=== PATIENT | male | born 1960 | race Caucasian/White ===

== ENCOUNTER 2020-10-18 17:14 | Observation (INO) | payer OTHER, SELFPAY ==
[2020-10-18 12:44] LABS: Basophils # 0.1 K/mm3 (0-0.2); Eosinophils # 0.2 K/mm3 (0.0-0.4); Eosinophils % 1.7 % (0.1-12.0); Hematocrit 56.3 % (42.0-52.0); Lymphocytes # 2.4 K/mm3 (0.7-4.5); Lymphocytes % 22.5 % (10-50); Mean Corpuscular HGB Conc 33.8 g/dL (31.8-35.4); Mean Corpuscular Hemoglobin 30.4 pg (27.0-31.2); Mean Corpuscular Volume 90.1 fl (80-94); Mean Platelet Volume 7.9 fl (7.4-10.4); Monocytes # 0.7 K/mm3 (0.1-1.0); Monocytes % 6.1 % (1.7-9.3); Neutrophils # 7.5 K/mm3 (1.8-7.8); Neutrophils % 68.7 % (37.0-80.0); Platelet Count 277 K/mm3 (142-424); Red Blood Count 6.24 M/mm3 (4.60-6.20); Red Cell Distribution Width 13.8 % (11.5-17.5); White Blood Count 10.8 K/mm3 (4.8-10.8)
--- NOTE | 2020-10-18 12:52 | ECG_ITS ---
APPROVED REPORT Exam: Resting ECG HR:127 bpm ECG Measurements Heart Rate 127 AXES QRSd 110 QRS -61 QT 346 T 119 QTc 502 Conclusion Atrial fibrillation with rapid ventricular response with premature ventricular or aberrantly conducted complexes Left anterior fascicular block Voltage criteria for left ventricular hypertrophy ST & T wave abnormality, consider lateral ischemia or digitalis effect Abnormal ECG Electronically signed by : Niraj Vela, 10/19/2020 08:35:34
[2020-10-18 13:02] LABS: Chloride 98 mmol/L (98-107); Potassium 4.9 mmoL/L (3.5-5.1); Sodium 140 mmol/L (136-145)
[2020-10-18 13:04] LABS: Alanine Aminotransferase 53 U/L (12-78); Aspartate Amino Transferase 49 U/L (17-59); Blood Urea Nitrogen 18 mg/dl (9-20); Estimated Glomerular Filt Rate 48 ml/min (>60); GFR (African American) 58 ML/MIN (>60)
[2020-10-18 13:05] LABS: Albumin Level 4.7 g/dl (3.5-5.0); Albumin/Globulin Ratio 1.6 (1.1-1.8); Alkaline Phosphatase 75 U/L (38-126); Anion Gap 12.9 mEq/L (5-15); Bilirubin,Total 0.8 mg/dl (0.2-1.3); Calcium 10.3 mg/dl (8.4-10.2); Carbon Dioxide 34 mmol/L (22.0-30.0); Creatine Kinase 93 U/L (55-170); Glucose 164 mg/dl (74-100); Total Protein,Serum 7.7 g/dl (6.3-8.2)
[2020-10-18 13:14] LABS: CKMB Relative Index 6.3 U/L (0-4.0); Creatine Kinase MB 5.9 ng/ml (0.0-2.03)
[2020-10-18 13:19] LABS: Troponin I 0.31 ng/ml (0.00-0.034)
[2020-10-18 13:37] LABS: Thyroid Stimulating Hormone 7.12 uIU/mL (0.465-4.68)
[2020-10-18 17:27] VITALS: BP 149/91; PULSE 76; RESP 20; TEMP 36.4; O2SAT 96; BMI 37.3
[2020-10-18 18:00] VITALS: BP 157/94; PULSE 59; RESP 21; O2SAT 95
[2020-10-18 18:41] LABS: Coronavirus 19, PCR Not Detected (NotDetected); Influenza A, PCR Not Detected (NotDetected); Influenza B, PCR Not Detected (NotDetected)
--- NOTE | 2020-10-18 19:10 | HMH.ACPN2 ---
Internal Medicine - PN: Subj *Date: 10/18/20 *Time: 19:10 Interval history: 60 Y.O. WM seen in office [facility] today with c/o of high BP and not feeling well for weeks. On no current medications. No chest pain. C/o fatigue and has lost about 20 pounds over several months. Not aware of heart irregularity. In office was found to be in atrial fibrillation with RVR greater than 112. Lungs were clear. No distress. The patient did not want hospitalization. Does not have insurance. Labwork and EKG were obtained as outpatient. Patient was contacted by Dr. Hyde regarding abnormal labs. At that point he agreed to admission. Dr. Hyde has been in contact with Dr. Dougherty regarding the patient, and he is aware of EKG and lab values. CPK=93, MB=5.9, Troponin=j0.31, BUN=18, creatinine=1.5, TSH=7.12, Lkr=790. He does not have previous diagnosis of A.fib, diabetes, or thyroid disease. Exam Vital signs and Labs for Last 24 Hours: Temp Pulse Resp BP Pulse Ox 97.6 F 59 L 21 157/94 H 95 10/18/20 17:27 10/18/20 18:00 10/18/20 18:00 10/18/20 18:00 10/18/20 18:00 Laboratory Results - last 24 hr 10/18/20 12:34: Sodium 140, Potassium 4.9, Chloride 98, Carbon Dioxide 34 H, Anion Gap 12.9, BUN 18, Creatinine 1.50 H, Estimated GFR 48 L, Est GFR ( Amer) 58 L, Glucose 164 H, Calcium 10.3 H, Total Bilirubin 0.8, AST 49, ALT 53, Alkaline Phosphatase 75, Total Creatine Kinase 93, CK-MB (CK-2) 5.9 H, CK-MB (CK-2) Rel Index 6.3 H, Troponin I 0.31 H, Total Protein 7.7, Albumin 4.7, Globulin 3.0, Albumin/Globulin Ratio 1.6, TSH 7.12 H 10/18/20 12:34: WBC 10.8, RBC 6.24 H, Hgb 19.0 H*, Hct 56.3 H, MCV 90.1, MCH 30.4, MCHC 33.8, RDW 13.8, Plt Count 277, MPV 7.9, Neut % (Auto) 68.7, Lymph % (Auto) 22.5, [place]berson % (Auto) 6.1, Eos % (Auto) 1.7, Baso % (Auto) 1.0, Neut # (Auto) 7.5, Lymph # (Auto) 2.4, [place] # (Auto) 0.7, Eos # (Auto) 0.2, Baso # (Auto) 0.1 10/18/20 18:20: SARS-CoV-2 (PCR) Not detected, Influenza A Untype (PCR) Not detected, Influenza Type B (PCR) Not detected I & O for Last 24 hours: Intake & Output 10/16/20 10/17/20 10/18/20 10/19/20 11:59 11:59 11:59 11:59 Weight 290 lb 8 oz - Constitutional no acute distress - *Routine HEENT Exam Head: Present: normocephalic Eye: Present: PERRL ENT: Present: mucous membranes moist - *Routine Neck Exam Absent: JVD - *Routine Respiratory Exam Present: CTA bilaterally - *Routine Cardiovascular Exam Present: tachycardia, irregular rhythm - *Routine Abdominal Exam Present: soft, obese. Absent: tenderness, mass - *Routine Extremities Exam Absent: edema - *Routine Skin Exam Present: intact - *Routine Neurological Exam Present: alert, oriented X3. Absent: motor deficit Assessment and Plan (1) Atrial fibrillation with rapid ventricular response Status: Acute Category: Medical Code(s): I48.91 - Unspecified atrial fibrillation (2) Type 2 diabetes mellitus Status: Acute Category: Medical Code(s): E11.9 - Type 2 diabetes mellitus without complications (3) Hypothyroidism (acquired) Status: Acute Category: Medical Code(s): E03.9 - Hypothyroidism, unspecified (4) Hypertension Status: Acute Category: Medical Code(s): I10 - Essential (primary) hypertension - Assessment and plan all Dx Assessment and Plan for all problems:: See orders. Metoprolol 50mg bid. Xarelto 15mg daily (creatinine=1.5). Levothyroxine.
[2020-10-18 19:12] LABS: Basophils # 0.1 K/mm3 (0-0.2); Basophils % 0.9 % (0.1-2.0); Eosinophils # 0.1 K/mm3 (0.0-0.4); Eosinophils % 1.3 % (0.1-12.0); Lymphocytes # 2.6 K/mm3 (0.7-4.5); Lymphocytes % 24.5 % (10-50); Neutrophils # 7.2 K/mm3 (1.8-7.8)
[2020-10-18 19:16] LABS: Hematocrit 53.5 % (42.0-52.0); Mean Corpuscular HGB Conc 34.2 g/dL (31.8-35.4); Mean Corpuscular Hemoglobin 31.3 pg (27.0-31.2); Mean Corpuscular Volume 91.5 fl (80-94); Mean Platelet Volume 9.1 fl (7.4-10.4); Monocytes # 0.6 K/mm3 (0.1-1.0); Monocytes % 5.9 % (1.7-9.3); Neutrophils % 67.5 % (37.0-80.0); Platelet Count 275 K/mm3 (142-424); Red Blood Count 5.85 M/mm3 (4.60-6.20); Red Cell Distribution Width 13.7 % (11.5-17.5); White Blood Count 10.7 K/mm3 (4.8-10.8)
[2020-10-18 19:17] LABS: Alanine Aminotransferase 49 U/L (12-78); Albumin Level 3.9 g/dl (3.5-5.0); Albumin/Globulin Ratio 1.5 (1.1-1.8); Alkaline Phosphatase 64 U/L (38-126); Anion Gap 12.7 mEq/L (5-15); Aspartate Amino Transferase 48 U/L (17-59); Bilirubin,Total 0.7 mg/dl (0.2-1.3); Blood Urea Nitrogen 18 mg/dl (9-20); Carbon Dioxide 28 mmol/L (22.0-30.0); Chloride 99 mmol/L (98-107); Creatinine Clearance Estimated 103 mL/min (50-200); Estimated Glomerular Filt Rate 52 ml/min (>60); GFR (African American) 62 ML/MIN (>60); Globulin 2.6 g/dL (1.3-3.2); Glucose 242 mg/dl (74-100); Potassium 3.7 mmoL/L (3.5-5.1); Sodium 136 mmol/L (136-145); Total Protein,Serum 6.5 g/dl (6.3-8.2)
[2020-10-18 19:18] LABS: Prothrombin Time 13.5 seconds (10.1-12.5)
[2020-10-18 19:20] LABS: INR 1.16 (0.9-1.1)
[2020-10-18 19:21] LABS: Hemoglobin 18.3 g/dL (14.1-18.0)
[2020-10-18 19:32] LABS: Calcium 8.9 mg/dl (8.4-10.2)
--- NOTE | 2020-10-18 19:39 | ECG_ITS ---
APPROVED REPORT Exam: Resting ECG HR:55 bpm ECG Measurements Heart Rate 55 AXES MA 152 P 24 QRSd 108 QRS -57 QT 438 T 198 QTc 419 Conclusion Sinus bradycardia Left anterior fascicular block Left ventricular hypertrophy with repolarization abnormality Abnormal ECG Electronically signed by : Niraj Vela, 10/19/2020 08:34:44
[2020-10-18 20:00] VITALS: PULSE 57; PULSE 60; TEMP 36.4; O2SAT 94
[2020-10-18 20:01] LABS: Troponin I 0.25 ng/ml (0.00-0.034)
[2020-10-18 22:00] VITALS: BP 143/94; BP 154/89; PULSE 56; PULSE 59; RESP 17; O2SAT 94; O2SAT 95
--- NOTE | 2020-10-18 22:17 | PC.NURSE ---
He is A&Ox3. He denies pain and SOA. He continues on RA. Sinus donna with occasional PVCs and inverted T wave noted on telemetry. EKG obtained and sent to Dr. Dougherty. He was notified of cardiology consult, creatinine, TSH, and previous afib. He is asymptomatic. Glucose was 128.
[2020-10-18 22:54] LABS: POC Glucose,Bedside 128 (70-110)
[2020-10-19] VITALS (16 sets, daily range): BP systolic 123–178; BP diastolic 73–112; PULSE 48–64; RESP 15–22; TEMP 36.5–36.8; O2SAT 92–96; BMI 37.2
[2020-10-19 06:20] LABS: Creatine Kinase 64 U/L (55-170)
[2020-10-19 06:21] LABS: Chol/HDL Ratio 4.9 (1-3.5); Cholesterol 156 mg/dl (140-200); HDL Cholesterol 32 mg/dl (40-60); Triglycerides 126 mg/dl (30-150); VLDL Cholesterol 25 mg/dL (0-40)
[2020-10-19 06:32] LABS: Direct LDL Cholesterol 107.78 mg/dL (100-129)
[2020-10-19 06:34] LABS: CKMB Relative Index 3.4 U/L (0-4.0); Creatine Kinase MB 2.2 ng/ml (0.0-2.03); Troponin I 0.23 ng/ml (0.00-0.034)
[2020-10-19 06:39] LABS: POC Glucose,Bedside 147 (70-110)
[2020-10-19 06:39] LABS: POC Glucose,Bedside 132 (70-110)
--- NOTE | 2020-10-19 07:13 | XR_ITS ---
PROCEDURE INFORMATION: Exam: XR Chest Exam date and time: 10/19/2020 7:13 AM Age: 60 years old Clinical indication: Angina pectoris; Patient HX: Chest pain, a-fib, tachycardia; Additional info: Cardiac issues TECHNIQUE: Imaging protocol: XR of the chest. Views: 1 view. COMPARISON: No relevant prior studies available. FINDINGS: Lungs: There are mild perihilar/basilar infiltrates (left greater than right). Pleural spaces: There is no pleural effusion or pneumothorax. Heart/Mediastinum: There is mild to moderate cardiomegaly concerning for a cardiomyopathy or pericardial effusion. Bones/joints: The bones are grossly normal. IMPRESSION: Cardiomegaly with mild perihilar and basilar infiltrates (left greater than right).
[2020-10-19 08:01] LABS: Chloride 101 mmol/L (98-107); Sodium 139 mmol/L (136-145)
[2020-10-19 08:02] LABS: Potassium 4.2 mmoL/L (3.5-5.1)
[2020-10-19 08:04] LABS: Alanine Aminotransferase 49 U/L (12-78); Albumin/Globulin Ratio 1.4 (1.1-1.8); Alkaline Phosphatase 76 U/L (38-126); Anion Gap 12.2 mEq/L (5-15); Aspartate Amino Transferase 46 U/L (17-59); Blood Urea Nitrogen 19 mg/dl (9-20); Carbon Dioxide 30 mmol/L (22.0-30.0); Creatinine Clearance Estimated 96 mL/min (50-200); Estimated Glomerular Filt Rate 48 ml/min (>60); GFR (African American) 58 ML/MIN (>60); Globulin 2.8 g/dL (1.3-3.2); Glucose 150 mg/dl (74-100); Total Protein,Serum 6.8 g/dl (6.3-8.2)
[2020-10-19 08:26] LABS: Hemoglobin A1C 6.8 % (4.0-6.0)
[2020-10-19 08:40] LABS: Ferritin 62.1 ng/ml (17.9-464)
[2020-10-19 08:50] LABS: Iron 163 ug/dL (49-181)
[2020-10-19 08:59] LABS: Total Iron Binding Capacity 396 ug/dL (261-462)
--- NOTE | 2020-10-19 09:19 | HMH.PHAVTE ---
[facility] Pharmacy VTE Monitoring - Patient Demographics Admission date: 10/19/20 Report Date: 10/19/20 Time: 09:19 Allergies/Adverse Reactions: Patient Allergies No Known Allergies Allergy (Verified 07/06/17 18:17) Height: 1.88 m Weight: 131.678 kg Patient Problems: Current Active Problems Atrial fibrillation with rapid ventricular response (Acute) Type 2 diabetes mellitus (Acute) Hypothyroidism (acquired) (Acute) Hypertension (Acute) - VTE Risk Labs: VTE Related Lab Results Hgb 18.3 g/dL (14.1-18.0) H* 10/18/20 17:45 Hct 53.5 % (42.0-52.0) H 10/18/20 17:45 Plt Count 275 K/mm3 (142-424) 10/18/20 17:45 PT 13.5 seconds (10.1-12.5) H 10/18/20 18:40 INR 1.16 (0.9-1.1) H 10/18/20 18:40 BUN 19 mg/dl (9-20) 10/19/20 05:48 Creatinine 1.50 mg/dl (0.66-1.25) H 10/19/20 05:48 Estimated Creat Clear 96 mL/min (50-200) 10/19/20 05:48 VTE Score: 2 VTE Risk Level: Very Low Risk - Prophylaxis Types of VTE Prophylaxis: TEDS Knee High (ARNIE HOSE ORDER PLACED.), Pharmacological Location of Applied Device: Bilateral Lower Extremeties Pharmacologic Type: Other (PATIENT IS CURRENTLY RECEIVING XARELTO WELL.)
--- NOTE | 2020-10-19 09:27 | HMH.HP ---
*Admission Date: 10/19/20 *Chief complaint: Fatigue and heart irregularity *History of present illness: This 60-year-old white male was admitted yesterday with the narrative as previously described: 60 Y.O. WM seen in office [facility] today with c/o of high BP and not feeling well for weeks. On no current medications. No chest pain. C/o fatigue and has lost about 20 pounds over several months. Not aware of heart irregularity. In office was found to be in atrial fibrillation with RVR greater than 112. Lungs were clear. No distress. The patient did not want hospitalization. Does not have insurance. Labwork and EKG were obtained as outpatient. Patient was contacted by Dr. Hyde regarding abnormal labs. At that point he agreed to admission. Dr. Hyde has been in contact with Dr. Dougherty regarding the patient, and he is aware of EKG and lab values. CPK=93, MB=5.9, Troponin=j0.31, BUN=18, creatinine=1.5, TSH=7.12, Itf=106. He does not have previous diagnosis of A.fib, diabetes, or thyroid disease. One correction to the above narrative is that the patient today tells me he has gained over 30 pounds over the past several months. He is not lost weight. Also in the office his heart rate was 124. On admission to the hospital yesterday he had converted to a normal sinus rhythm with heart rates in the range of 60 and even below. There was some ectopic activity, mainly atrial. By the time he had been admitted he had taken his dose of Xarelto 15 mg and metoprolol extended release [address] Dougherty and I talked about giving metoprolol 50 mg twice daily but with this heart rate obviously that would not be tolerated. He has not received his metoprolol yet this morning and his heart rates are 50-60. He states that he feels much better today. [facility] History Medical History: Reports:: Arrhythmia (Suspected over the past 2 months), Hypertension Denies:: Atrial Fibrillation, Congestive Heart Failure, Chronic Obstructive Pulmonary Disease (COPD) (Not a smoker), Congenital Heart Disease, Coronary Artery Disease (Not known), Diabetes Mellitus Type 2 (Not known), Renal Disease *Have you ever received a pneumonia vaccine?: No *Have you received a flu vaccine this season?: No Other Medical History: Reports: Arthritis (Knee pain). 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 He is and has 1 son and 1 daughter are both in good health.) Review of Systems - Constitutional Reports fatigue, Denies anorexia, Denies body ache(s), Denies chills, Denies fever(s) - Eyes Denies change in vision - ENT Denies abnormal hearing, Denies headache(s), Denies pain with swallowing - *Cardiovascular Reports rapid, pounding, or irregular heartbeat (Episodic over the past 2 months), Denies chest pain, Denies chest pain at rest, Denies chest pain with activity - *Respiratory Denies chest congestion - *Gastrointestinal Denies abdominal pain, Denies constipation, Denies loose stools - *Genitourinary Denies difficulty urinating - *Musculoskeletal Reports joint pain (Knees), Denies abnormal walking - Integumentary/Breasts Denies changing lesions, Denies yellowing of the skin - *Neurologic Denies abnormal walking, Denies seizure-like activity, Denies localized weakness, Denies frequent falls - Psychiatric Denies behavioral changes - Endocrine Reports rapid, pounding, or irregular heartbeat - Hematologic/Lymphatic Denies easy bruising Meds Home Medications Medication Instructions Recorded Confirmed Type Metoprolol Succinate [Metoprolol 50 mg PO DAILY 10/18/20 10/18/20 Histo
--- NOTE | 2020-10-19 09:49 | PC.NURSE ---
Order faxed to pharmacy to [place] PO metoprolol per VO from Dr Hyde, ready back and verified.
[2020-10-19 11:39] LABS: POC Glucose,Bedside 112 (70-110)
[2020-10-19 17:01] LABS: POC Glucose,Bedside 163 (70-110)
[2020-10-20] VITALS (16 sets, daily range): BP systolic 145–174; BP diastolic 68–109; PULSE 50–65; RESP 16–22; TEMP 36.5–36.7; O2SAT 93–98; BMI 37.2; BMI 37.3
[2020-10-20 06:32] LABS: POC Glucose,Bedside 128 (70-110)
--- NOTE | 2020-10-20 08:17 | HMH.ACPN2 ---
<Kinsey Fink - Last Filed: 10/20/20 08:17> Internal Medicine - PN: Subj *Date: 10/20/20 *Time: 08:17 Interval history: Patient states he feels great. He has felt no further palpitations and has had no further chest pain. He denies shortness of breath. He is eating and drinking without difficulty. He ambulates in the room without problems. Exam Vital signs and Labs for Last 24 Hours: Temp Pulse Resp BP Pulse Ox 98.0 F 61 22 165/83 H 95 10/20/20 07:57 10/20/20 08:00 10/20/20 08:00 10/20/20 08:00 10/20/20 08:00 Laboratory Results - last 24 hr 10/19/20 05:48: Ferritin 62.1 10/19/20 05:48: Hemoglobin A1c 6.8 H 10/19/20 08:10: Iron 163, TIBC 396, Iron Saturation 41.20997 10/19/20 11:28: POC Glucose 112 H 10/19/20 16:51: POC Glucose 163 H 10/20/20 06:20: POC Glucose 128 H I & O for Last 24 hours: Intake & Output 10/17/20 10/18/20 10/19/20 10/20/20 11:59 11:59 11:59 11:59 Intake Total 620 / 620 1440 / 1440 Balance 620 / 620 1440 / 1440 Weight 290 lb 4.8 oz 290 lb 3 oz - Constitutional no acute distress - *Routine Respiratory Exam Present: CTA bilaterally (Anteriorly and posteriorly) - *Routine Cardiovascular Exam Present: RRR (Monitor showing sinus rhythm) - *Routine Abdominal Exam Present: soft, normoactive bowel sounds. Absent: tenderness - *Routine Extremities Exam Absent: edema, calf tenderness - *Routine Neurological Exam Present: alert, oriented X3 Assessment and Plan (1) Atrial fibrillation with rapid ventricular response Status: Acute Category: Medical Code(s): I48.91 - Unspecified atrial fibrillation (2) Type 2 diabetes mellitus Status: Acute Category: Medical Code(s): E11.9 - Type 2 diabetes mellitus without complications (3) Hypothyroidism (acquired) Status: Acute Category: Medical Code(s): E03.9 - Hypothyroidism, unspecified (4) Hypertension Status: Acute Category: Medical Code(s): I10 - Essential (primary) hypertension - Assessment and plan all Dx Assessment and Plan for all problems:: Troponin I is elevated on admission. Cardiology to see. Have consulted care management due to no insurance. <Candace Leungian - Last Filed: 10/20/20 08:46> Internal Medicine - PN: Subj *Date: 10/20/20 *Time: 08:46 Exam Vital signs and Labs for Last 24 Hours: Temp Pulse Resp BP Pulse Ox 98.0 F 61 22 165/83 H 95 10/20/20 07:57 10/20/20 08:00 10/20/20 08:00 10/20/20 08:00 10/20/20 08:00 Laboratory Results - last 24 hr 10/19/20 08:10: Iron 163, TIBC 396, Iron Saturation 41.91582 10/19/20 11:28: POC Glucose 112 H 10/19/20 16:51: POC Glucose 163 H 10/20/20 06:20: POC Glucose 128 H I & O for Last 24 hours: Intake & Output 10/17/20 10/18/20 10/19/20 10/20/20 23:59 23:59 23:59 23:59 Intake Total 1580 / 1580 480 / 480 Balance 1580 / 1580 480 / 480 Weight 290 lb 8 oz 290 lb 4.8 oz 290 lb 3 oz Assessment and Plan (1) Atrial fibrillation with rapid ventricular response Status: Acute Category: Medical Code(s): I48.91 - Unspecified atrial fibrillation (2) Type 2 diabetes mellitus Status: Acute Category: Medical Code(s): E11.9 - Type 2 diabetes mellitus without complications (3) Hypothyroidism (acquired) Status: Acute Category: Medical Code(s): E03.9 - Hypothyroidism, unspecified (4) Hypertension Status: Acute Category: Medical Code(s): I10 - Essential (primary) hypertension - Assessment and plan all Dx Assessment and Plan for all problems:: Saw patient, he has improved, HR in the 60's this morning. Agree with above note.
[2020-10-20 11:23] LABS: POC Glucose,Bedside 117 (70-110)
--- NOTE | 2020-10-20 12:45 | SW/DCPLANNER ---
PATIENT PRESENTED INTO THE HOSPITAL WITH A NEW ONSET OF A-FIB, HAD RECENTLY BEEN IN THE DOCTORS OFFICE AND DID NOT WANT TO BE ADMITTED R/T NOT HAVING ANY INSURANCE... HE WAS ADMITTED 10/18 OBSERVATION AND THE CLINICAL MEDICAL ASSISTANT SAW PATIENT REGARDING HIS NO INSURANCE PROBLEM AND SHE STATED SHE DID SEE PATIENT AND HE DOES NOT QUALIFY FOR MEDICAID BENEFITS BUT THEY ARE WORKING ON A PAYMENT PLAN FOR HIM... NOT SURE IF HE IS GOING TO NEED ANY ADDITIONAL DISCHARGE PLANNING AT THIS TIME AND I WILL BE AVAILABLE IF A HE SHOULD NEED ANYTHING AT TIME OF DISPOSITION... PATIENT DOES HAVE A CARDIOLOGY CONSULT TO BE SEEN...
[2020-10-20 12:50] LABS: POC Glucose,Bedside 143 (70-110)
--- NOTE | 2020-10-20 15:58 | PC.NURSE ---
Pt is A&O x4. No acute changes this shift. Pt has has been sinus donna t/o shift with HR in upper 50s. Pt is able to ambulate and care for self independently. Pt is tolerating room air with stats above 92. Pt is waiting for cardiology consult tomorrow. has been at bedside t/o shift. Call huddleston within reach. Will continue to monitor.
[2020-10-20 18:09] LABS: POC Glucose,Bedside 186 (70-110)
[2020-10-21] VITALS (31 sets, daily range): BP systolic 150–192; BP diastolic 69–126; PULSE 50–70; RESP 12–24; TEMP 36.4–36.9; O2SAT 91–100; BMI 37.5
--- NOTE | 2020-10-21 | IR_ITS ---
APPROVED REPORT Patient Location: Inpatient PROCEDURES Left heart catheterization Left ventriculogram Selective coronary angiogram INDICATION Acute non-ST elevation myocardial infarction Informed consent was obtained prior to the procedure. COMPLICATIONS None Estimated Blood Loss: Less than 10 mls TECHNIQUE One percent lidocaine used to anesthetize the right anterior aspect of the wrist. The right radial artery was accessed via the Seldinger technique. A 6 Mohawk sheath was placed in the right radial artery. 2.5 mg of verapamil, 800 mcg of nitroglycerin, 1mg Lidocaine and 5000 U Heparin were given through the arterial sheath. The trap catheter was also used to perform left heart catheterization, left ventriculogram and selective coronary angiogram. At the end of the procedure the sheath was removed good hemostasis was achieved using Traclet band, patient was transferred to the postop holding area in stable condition. ANGIOGRAPHIC RESULTS The left main artery Normal The left anterior descending artery Widely patent with mild 10% luminal irregularities The circumflex artery Dominant with mild 10% luminal irregularities The right coronary artery Nondominant left mild 10% luminal irregularities The ERIC ventriculogram reveals Dilated ventricle with preserved ejection fraction of 60% The left ventricular end-diastolic pressure Severely elevated at 40 mmHg IMPRESSION Mild nonflow limiting coronary disease Dilated ventricle with preserved ejection fraction consistent with hypertensive heart disease Severely elevated LVEDP consistent with severe diastolic dysfunction severe hypertensive heart disease Patient is suffering from advanced hypertensive heart disease with evidence of endorgan failure from both elevated troponin and elevated creatinine PLAN 1. Treatment of diabetes 2. Aggressive risk factor modification with high intensity statin therapy 3. Control of hypertension with carvedilol and RAVI inhibitors or ARB if tolerated 4. Treatment of diastolic dysfunction by controlling hypertension and advancing diuretics in order to decrease EDP while keeping close track of creatinine 5. Patient has advanced endorgan disease as evidenced by the chronic renal failure. Disease modifying medications are most useful at this point and should include the carvedilol RAVI inhibitor/ARB combination. Electronically signed by : Vicente Dougherty, 10/21/2020 11:38:51
[2020-10-21 00:33] LABS: POC Glucose,Bedside 130 (70-110)
[2020-10-21 06:34] LABS: POC Glucose,Bedside 111 (70-110)
--- NOTE | 2020-10-21 07:59 | HMH.CNCARD ---
History of Present Illness Consult date: 10/21/20 Requesting physician: Vladimir Leung Consult reason: atrial fibrillation Chief complaint: Atrial fib with RVR History of present illness: 60-year-old male admitted to [facility] on 10/18/20 with new onset atrial fibrillation with RVR. Patient states he had been seen by his PCP in the office, EKG was performed which revealed atrial fibrillation with heart rate greater than 112 bpm. Patient states for the past few weeks he had been having palpitations. States he did have one episode of chest heaviness with palpitations. Patient stated this chest heaviness only lasted for a few seconds. Since admission patient has denied chest pain, tightness or pressure. Patient denies shortness of breath. Patient states palpitations have improved. Patient is noted to be in sinus bradycardia with inverted T. Denies swelling of the lower extremities. Denies dizziness. Patient is a non-smoker. Occasional alcohol. Denies recreational drugs. Since this admission patient has been diagnosed with type 2 diabetes which patient was started on Metformin per PCP. Will defer diabetes management to PCP. Patient does have history of hypertension. History of hyperlipidemia in which patient is on atorvastatin. Patient states 20+ years ago he did undergo stress test which was normal. Patient states he had been told several years ago his EKG was abnormal due to inverted T. Overall patient is feeling well today. Patient is being set up with case management due to no previous insurance. Preliminary echocardiogram reveals mild mitral regurgitation and tricuspid regurgitation. Ejection fraction greater than 55%. Waiting on official echocardiogram reading. Upon admission troponins were elevated. Troponin noted at 0.31. Due to the new onset of atrial fibrillation, Xarelto 15 mg p.o. was initiated by PCP. Patient had been on metoprolol due to heart rate. PCP stopped beta-tono due to bradycardia. Chest xray:IMPRESSION: Cardiomegaly with mild perihilar and basilar infiltrates (left greater than right). Discussed plan of care with Dr. Dougherty. Orders and recommendations received from Dr. Dougherty. Discussed risk and benefits with patient to undergo left heart catheterization due to new onset atrial fibrillation elevated troponins, with right radial access. Patient verbalizes understanding and is agreeable to procedure. Pending on the results of echocardiogram and left heart catheterization, medication and treatment therapies may be recommended. Thank you for allowing cardiology to participate in the care of this patient. [facility] History I have reviewed the patient's past medical history: Yes Medical History: Reports:: Arrhythmia (Suspected over the past 2 months), Hypertension Denies:: Atrial Fibrillation, Congestive Heart Failure, Chronic Obstructive Pulmonary Disease (COPD) (Not a smoker), Congenital Heart Disease, Coronary Artery Disease (Not known), Diabetes Mellitus Type 2 (Not known), Renal Disease *Have you ever received a pneumonia vaccine?: No *Have you received a flu vaccine this season?: No Other Medical History: Reports: Arthritis (Knee pain). 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 He is and has 1 son and 1 daughter are both in good health.) Meds Home Medications Medication Instructions Recorded Confirmed Type Metoprolol Succinate [Metoprolol 50 mg PO DAILY 10/18/20 10/18/20 History Succinate 50mg Tablet*] Rivaroxaban [Xarelto 20mg Tablet*] 20 mg PO DAILY 10/18/20 10/18/20 History Allergies Allerg
--- NOTE | 2020-10-21 08:38 | HMH.ACPN2 ---
<Kinsey Fink - Last Filed: 10/21/20 08:38> Internal Medicine - PN: Subj *Date: 10/21/20 *Time: 08:38 Interval history: Patient has had no further problems. He denies chest pain or shortness of breath. He is eating without difficulty. He ambulates without problems. Exam Vital signs and Labs for Last 24 Hours: Temp Pulse Resp BP Pulse Ox 97.6 F 58 L 12 156/98 H 96 10/21/20 07:42 10/21/20 08:00 10/21/20 08:00 10/21/20 08:00 10/21/20 08:00 Laboratory Results - last 24 hr 10/20/20 00:05: POC Glucose 117 H 10/20/20 12:42: POC Glucose 143 H 10/20/20 18:01: POC Glucose 186 H 10/21/20 00:23: POC Glucose 130 H 10/21/20 06:17: POC Glucose 111 H I & O for Last 24 hours: Intake & Output 10/18/20 10/19/20 10/20/20 10/21/20 11:59 11:59 11:59 11:59 Intake Total 620 / 620 1440 / 1440 720 / 720 Balance 620 / 620 1440 / 1440 720 / 720 Weight 290 lb 4.8 oz 290 lb 3 oz 292 lb 3 oz - Constitutional no acute distress Comments: Sitting on the bedside and appears comfortable. He is n.p.o. for cardiology visit - *Routine Respiratory Exam Present: CTA bilaterally (Anteriorly and posteriorly) - *Routine Cardiovascular Exam Present: RRR Comments: Monitor showing sinus rhythm in the 50s - *Routine Abdominal Exam Present: soft, normoactive bowel sounds. Absent: tenderness - *Routine Extremities Exam Present: edema (Trace bilaterally) - *Routine Neurological Exam Present: alert, oriented X3 Assessment and Plan (1) Atrial fibrillation with rapid ventricular response Status: Acute Category: Medical Code(s): I48.91 - Unspecified atrial fibrillation (2) Type 2 diabetes mellitus Status: Acute Category: Medical Code(s): E11.9 - Type 2 diabetes mellitus without complications (3) Hypothyroidism (acquired) Status: Acute Category: Medical Code(s): E03.9 - Hypothyroidism, unspecified (4) Hypertension Status: Acute Category: Medical Code(s): I10 - Essential (primary) hypertension - Assessment and plan all Dx Assessment and Plan for all problems:: Patient has been seen by cardiology this a.m. and we will follow their direction. <Vladimir Leung - Last Filed: 10/21/20 08:46> Internal Medicine - PN: Subj *Date: 10/21/20 *Time: 08:46 Exam Vital signs and Labs for Last 24 Hours: Temp Pulse Resp BP Pulse Ox 97.6 F 58 L 12 156/98 H 96 10/21/20 07:42 10/21/20 08:00 10/21/20 08:00 10/21/20 08:00 10/21/20 08:00 Laboratory Results - last 24 hr 10/20/20 00:05: POC Glucose 117 H 10/20/20 12:42: POC Glucose 143 H 10/20/20 18:01: POC Glucose 186 H 10/21/20 00:23: POC Glucose 130 H 10/21/20 06:17: POC Glucose 111 H I & O for Last 24 hours: Intake & Output 10/18/20 10/19/20 10/20/20 10/21/20 23:59 23:59 23:59 23:59 Intake Total 1580 / 1580 1200 / 1200 0 / 0 Balance 1580 / 1580 1200 / 1200 0 / 0 Weight 290 lb 8 oz 290 lb 4.8 oz 291 lb 0.163 oz 292 lb 3 oz Assessment and Plan (1) Atrial fibrillation with rapid ventricular response Status: Acute Category: Medical Code(s): I48.91 - Unspecified atrial fibrillation (2) Type 2 diabetes mellitus Status: Acute Category: Medical Code(s): E11.9 - Type 2 diabetes mellitus without complications (3) Hypothyroidism (acquired) Status: Acute Category: Medical Code(s): E03.9 - Hypothyroidism, unspecified (4) Hypertension Status: Acute Category: Medical Code(s): I10 - Essential (primary) hypertension - Assessment and plan all Dx Assessment and Plan for all problems:: Saw patient, agree with above note.
[2020-10-21 10:05] LABS: Chloride 102 mmol/L (98-107); Potassium 4.4 mmoL/L (3.5-5.1); Sodium 139 mmol/L (136-145)
[2020-10-21 10:08] LABS: Anion Gap 10.4 mEq/L (5-15); Blood Urea Nitrogen 19 mg/dl (9-20); Calcium 8.9 mg/dl (8.4-10.2); Carbon Dioxide 31 mmol/L (22.0-30.0); Creatinine Clearance Estimated 121 mL/min (50-200); Estimated Glomerular Filt Rate 62 ml/min (>60); GFR (African American) 74 ML/MIN (>60); Glucose 126 mg/dl (74-100)
--- NOTE | 2020-10-21 10:18 | PC.NURSE ---
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
--- NOTE | 2020-10-21 12:02 | PC.NURSE ---
[facility]
[2020-10-21 12:17] LABS: POC Glucose,Bedside 97 (70-110)
[2020-10-21 17:13] LABS: POC Glucose,Bedside 97 (70-110)
--- NOTE | 2020-10-21 19:58 | PC.NURSE ---
He is A&Ox4. He reports having a headache but states he has previously taken some acetaminophen. He ambulates and turns himself independently. He is s/p heart cath with right radial site. His DSG is C/D/I. He continues on RA. He denies SOA and chest pain. Positive radial pulses. Capillary refill <3.
[2020-10-22] VITALS (10 sets, daily range): BP systolic 131–187; BP diastolic 62–108; PULSE 50–68; RESP 18–20; TEMP 36.4–36.6; O2SAT 92–97; BMI 37.3
[2020-10-22 00:14] LABS: POC Glucose,Bedside 141 (70-110)
[2020-10-22 06:38] LABS: Anion Gap 9.3 mEq/L (5-15); Blood Urea Nitrogen 16 mg/dl (9-20); Calcium 8.7 mg/dl (8.4-10.2); Carbon Dioxide 30 mmol/L (22.0-30.0); Chloride 102 mmol/L (98-107); Creatinine Clearance Estimated 121 mL/min (50-200); Estimated Glomerular Filt Rate 62 ml/min (>60); GFR (African American) 74 ML/MIN (>60); Glucose 121 mg/dl (74-100); Potassium 4.3 mmoL/L (3.5-5.1); Sodium 137 mmol/L (136-145)
[2020-10-22 06:42] LABS: POC Glucose,Bedside 115 (70-110)
--- NOTE | 2020-10-22 08:07 | HMH.ACPN2 ---
<Zulay Resendez - Last Filed: 10/22/20 08:07> Internal Medicine - PN: Subj *Date: 10/22/20 *Time: 08:07 Interval history: Patient states he is feeling well this morning. He has been up moving all around his room. He denies any chest pain or shortness of breath. He states he slept like a rock last night and he ate well this morning. He is worried about his blood pressure as it seems to be trending upward. It was checked manually this morning and was 180/90. Exam Vital signs and Labs for Last 24 Hours: Temp Pulse Resp BP Pulse Ox 98.4 F 56 L 17 185/108 H 94 L 10/21/20 19:49 10/22/20 06:00 10/21/20 22:00 10/22/20 06:00 10/22/20 06:00 Laboratory Results - last 24 hr 10/21/20 09:42: Sodium 139, Potassium 4.4, Chloride 102, Carbon Dioxide 31 H, Anion Gap 10.4, BUN 19, Creatinine 1.20, Estimated Creat Clear 121, Estimated GFR 62, Est GFR ( Amer) 74 D, Glucose 126 H, Calcium 8.9 10/21/20 12:11: POC Glucose 97 10/21/20 17:06: POC Glucose 97 10/22/20 00:06: POC Glucose 141 H 10/22/20 05:48: POC Glucose 115 H 10/22/20 05:54: Sodium 137, Potassium 4.3, Chloride 102, Carbon Dioxide 30, Anion Gap 9.3, BUN 16, Creatinine 1.20, Estimated Creat Clear 121, Estimated GFR 62, Est GFR ( Amer) 74, Glucose 121 H, Calcium 8.7 I & O for Last 24 hours: Intake & Output 10/19/20 10/20/20 10/21/20 10/22/20 11:59 11:59 11:59 11:59 Intake Total 620 / 620 1440 / 1440 720 / 720 380 / 380 Balance 620 / 620 1440 / 1440 720 / 720 380 / 380 Weight 290 lb 4.8 oz 290 lb 3 oz 292 lb 3 oz 291 lb 1 oz - Constitutional no acute distress - *Routine Respiratory Exam Present: CTA bilaterally - *Routine Cardiovascular Exam Present: RRR - *Routine Abdominal Exam Present: soft, normoactive bowel sounds. Absent: tenderness - *Routine Extremities Exam Absent: cyanosis, clubbing, edema - *Routine Skin Exam Present: warm. Absent: rash - *Routine Neurological Exam Present: alert, oriented X3 Assessment and Plan (1) Atrial fibrillation with rapid ventricular response Status: Acute Category: Medical Code(s): I48.91 - Unspecified atrial fibrillation (2) Type 2 diabetes mellitus Status: Acute Category: Medical Code(s): E11.9 - Type 2 diabetes mellitus without complications (3) Hypothyroidism (acquired) Status: Acute Category: Medical Code(s): E03.9 - Hypothyroidism, unspecified (4) Hypertension Status: Acute Category: Medical Code(s): I10 - Essential (primary) hypertension - Assessment and plan all Dx Assessment and Plan for all problems:: Blood pressure still elevated despite the addition of medication yesterday. Heart rate is in the 60s this morning. Cardiology to follow and will discuss further care with Dr. Leung. <Vladimir Leung - Last Filed: 10/22/20 08:44> Internal Medicine - PN: Subj *Date: 10/22/20 *Time: 08:42 Exam Vital signs and Labs for Last 24 Hours: Temp Pulse Resp BP Pulse Ox 97.6 F 56 L 17 185/108 H 94 L 10/22/20 08:00 10/22/20 06:00 10/21/20 22:00 10/22/20 06:00 10/22/20 06:00 Laboratory Results - last 24 hr 10/21/20 09:42: Sodium 139, Potassium 4.4, Chloride 102, Carbon Dioxide 31 H, Anion Gap 10.4, BUN 19, Creatinine 1.20, Estimated Creat Clear 121, Estimated GFR 62, Est GFR ( Amer) 74 D, Glucose 126 H, Calcium 8.9 10/21/20 12:11: POC Glucose 97 10/21/20 17:06: POC Glucose 97 10/22/20 00:06: POC Glucose 141 H 10/22/20 05:48: POC Glucose 115 H 10/22/20 05:54: Sodium 137, Potassium 4.3, Chloride 102, Carbon Dioxide 30, Anion Gap 9.3, BUN 16, Creatinine 1.20, Estimated Creat Clear 121, Estimated GFR 62, Est GFR ( Amer) 74, Glucose 121 H, Calcium 8.7 I & O for Last 24 hours: Intake & Output 10/19/20 10/20/20 10/21/20 10/22/20 23:59 23:59 23:59 23:59 Intake Total 1580 / 1580 1200 / 1200 360 / 360 380 / 380 Balance 1580 / 1580 1200 / 1200 360 / 360 380 / 380 Weight 290 lb 4.8 oz 291 lb 0.163 oz 292 lb 3 oz 291 lb
--- NOTE | 2020-10-22 09:24 | HMH.PNCARD ---
Subjective Date: 10/22/20 Time: 09:00 Principal diagnosis: New onset Atrial fib Interval history: 60-year-old male admitted to [facility] on 10/18/20 with new onset atrial fibrillation with RVR. Patient did undergo a left heart catheterization yesterday. Left heart catheterization revealed mild nonflow limiting CAD with dilated ventricle with preserved ejection fraction consistent with hypertensive heart disease. Severely elevated LVEDP consistent with severe diastolic dysfunction and severe hypertensive heart disease. Patient was started on diuretics for diastolic dysfunction. Patient has denied chest pain, tightness or pressure. Patient denies shortness of breath. Patient states palpitations have improved. Patient is noted to be in sinus bradycardia with inverted T. Denies swelling of the lower extremities. Denies dizziness. Patient is a non-smoker. Occasional alcohol. Denies recreational drugs. Since this admission patient has been diagnosed with type 2 diabetes which patient was started on Metformin per PCP. Will defer diabetes management to PCP. Patient does have history of hypertension. History of hyperlipidemia in which patient is on atorvastatin. Patient states he had been told several years ago his EKG was abnormal due to inverted T. Overall patient is feeling well today. Patient is being set up with case management due to no previous insurance. Preliminary echocardiogram reveals mild mitral regurgitation and tricuspid regurgitation. Ejection fraction greater than 55%. Waiting on official echocardiogram reading. We are unable to start beta-tono at this time due to sinus bradycardia. Lisinopril had been increased to 40 mg p.o. BP control. Patient's blood pressure this morning remains to be elevated. PCP is managing hypertension. Patient will need BMP in 1 week due to starting diuretics and monitoring creatinine level. [facility]:ANGIOGRAPHIC RESULTS The left main artery Normal The left anterior descending artery Widely patent with mild 10% luminal irregularities The circumflex artery Dominant with mild 10% luminal irregularities The right coronary artery Nondominant left mild 10% luminal irregularities The ERIC ventriculogram reveals Dilated ventricle with preserved ejection fraction of 60% The left ventricular end-diastolic pressure Severely elevated at 40 mmHg IMPRESSION Mild nonflow limiting coronary disease Dilated ventricle with preserved ejection fraction consistent with hypertensive heart disease Severely elevated LVEDP consistent with severe diastolic dysfunction severe hypertensive heart disease Patient is suffering from advanced hypertensive heart disease with evidence of endorgan failure from both elevated troponin and elevated creatinine PLAN 1. Treatment of diabetes 2. Aggressive risk factor modification with high intensity statin therapy 3. Control of hypertension with carvedilol and RAVI inhibitors or ARB if tolerated 4. Treatment of diastolic dysfunction by controlling hypertension and advancing diuretics in order to decrease EDP while keeping close track of creatinine 5. Patient has advanced endorgan disease as evidenced by the chronic renal failure. Disease modifying medications are most useful at this point and should include the carvedilol RAVI inhibitor/ARB combinatio Thank you for allowing cardiology to participate in the care of this patient. Exam Vital signs and Labs for Last 24 Hours: Temp Pulse Resp BP Pulse Ox 97.6 F 58 L 17 185/108 H 95 10/22/20 08:00 10/22/20 08:00 10/21/20 22:00 10/22/20 06:00 10/22/20 08:00 Laboratory Results - last 24 hr 10/21/20 09:42: Sodium 139, Potassium 4.4, Chloride 102, Carbon Dioxide 31 H, Anion Gap 10.4, BUN 19, Creatinine 1.20, Estimated Creat Clear 121, Estimated GFR 62, Est GFR ( Amer) 74 D, Glucose 126 H, Calcium 8.9 10/21/20 12:11: POC Glucose 97 10/21/20 17:06: POC Glucose 97 10/22/20 00:06: P
--- NOTE | 2020-10-22 10:06 | DIET.NUTRFU ---
Nutritional assessment, IP/consult completed. Pt has been provided diet edu for heart health/low sodium diet and for managing BG (did not notify pt of A1C). Pt encouraged to reach out with questions/concerns post dc.
[2020-10-22 12:51] LABS: POC Glucose,Bedside 116 (70-110)
--- NOTE | 2020-10-22 16:59 | PC.NURSE ---
pt has been up to the chair all shift with his sitting with him. lungs are clear, bowels active. nad noted. pt is anxious to go home, but aware that his blood pressure is still high. Dr Leung aware bp at 1600 was 176/93
--- NOTE | 2020-10-23 08:30 | HMH.DCSUM ---
General - General Admission date:: 10/18/20 Discharge date: 10/22/20 HPI HPI: This 60-year-old white male was admitted yesterday with the narrative as previously described: 60 Y.O. WM seen in office [facility] today with c/o of high BP and not feeling well for weeks. On no current medications. No chest pain. C/o fatigue and has gained over 30 pounds over the past several months. Not aware of heart irregularity. In office was found to be in atrial fibrillation with RVR greater than 112. Lungs were clear. No distress. The patient did not want hospitalization. Does not have insurance. Labwork and EKG were obtained as outpatient. Patient was contacted by Dr. Hyde regarding abnormal labs. At that point he agreed to admission. Dr. Hyde has been in contact with Dr. Dougherty regarding the patient, and he is aware of EKG and lab values. CPK=93, MB=5.9, Troponin=0.31, BUN=18, creatinine=1.5, TSH=7.12, Btk=154. He does not have previous diagnosis of A.fib, diabetes, or thyroid disease. In the office his heart rate was 124. On admission to the hospital yesterday he had converted to a normal sinus rhythm with heart rates in the range of 60 and even below. There was some ectopic activity, mainly atrial. By the time he had been admitted he had taken his dose of Xarelto 15 mg and metoprolol extended release [address] Dougherty and I talked about giving metoprolol 50 mg twice daily, but with this heart rate, obviously that would not be tolerated. He has not received his metoprolol yet this morning and his heart rates are 50-60. He states that he feels much better today. Hospital Course Hospital Course: The patient's metoprolol was discontinued due to bradycardia. The patient felt much better and had no further palpitations or chest pain. He was able to ambulate without difficulty. Cardiology was consulted, but they were unavailable for nonemergent consult. An echo was ordered and he was started on lisinopril due to elevated blood pressure. He agreed to stay another day for cardiology evaluation. He was seen in consultation by cardiology on 10/21/2020, and they felt he would need a heart cath due to his elevated troponins and new onset atrial fibrillation. His echo showed mild mitral regurgitation and tricuspid regurgitation and his ejection fraction was greater than 55%. The patient had a heart cath which showed mild nonflow limiting coronary disease and a dilated ventricle with preserved ejection fraction consistent with hypertensive heart disease. He had a severely elevated LVEDP consistent with severe diastolic dysfunction and severe hypertensive heart disease. Cardiology increased his lisinopril to 40 mg daily but were unable to add a beta-tono due to his sinus bradycardia. He was started on Lasix and Aldactone. His blood pressure continued to remain elevated, therefore his blood pressure medications were adjusted. His blood pressure did improve and he was stable to be discharged home. He will follow-up with cardiology in [address] Leung as well. Objective Vital signs: Temp Pulse Resp BP Pulse Ox 97.7 F 60 20 176/93 H 94 L 10/22/20 16:00 10/22/20 16:00 10/22/20 16:00 10/22/20 16:00 10/22/20 16:00 Narrative: - Constitutional no acute distress (He is quite comfortable this morning.) - *Routine HEENT Exam Head: Present: normocephalic Eye: Present: PERRL ENT: Present: mucous membranes moist - *Routine Neck Exam Absent: JVD, lymphadenopathy, thyromegaly - Routine Chest/Breast/Axilla Exam Chest wall: Absent: tenderness - *Routine Respiratory Exam Present: CTA bilaterally - *Routine Cardiovascular Exam Present: bradycardia (Sinus monitors PACs on occasion) - *Routine Abdominal Exam Present: soft, normoactive bowel sounds. Absent: tenderness - *Routine Rectal Exam Rectal:: deferred - *Routine Genitalia Exam Genitalia:: deferred - *Routine Extremities Exam Absent: edema
== END 2020-10-22 18:56 | disposition home or self-care (01) ==
PROVIDERS: Internal Medicine; Urology; Admitting Provider Family Medicine; PCP Family Medicine; Visit Provider Family Medicine
DX: I48.91 Unspecified atrial fibrillation; I11.9 Hypertensive heart disease without heart failure; E11.9 Type 2 diabetes mellitus without complications; E03.9 Hypothyroidism, unspecified; Z20.822 Contact with and (suspected) exposure to COVID-19
CPT/HCPCS: 36415; 71045; 80048; 80053; 80061; 82550; 82553; 82728; 82962; 83036; 83540; 83550; 83735; 84443; 84484; 85025; 85610; 93005; 93306; 93458; 99152; C1725; C1760; C1769; G0378; J1644; Q9967; U0003

== ENCOUNTER → 2020-11-17 11:33 | Outpatient (CLI) | payer OTHER, SELFPAY ==
[2020-11-17 12:23] LABS: Basophils # 0.1 K/mm3 (0-0.2); Eosinophils # 0.2 K/mm3 (0.0-0.4); Eosinophils % 2.1 % (0.1-12.0); Hematocrit 51.6 % (42.0-52.0); Hemoglobin 17.2 g/dL (14.1-18.0); Lymphocytes # 2.1 K/mm3 (0.7-4.5); Lymphocytes % 23.8 % (10-50); Mean Corpuscular HGB Conc 33.4 g/dL (31.8-35.4); Mean Corpuscular Hemoglobin 30.6 pg (27.0-31.2); Mean Corpuscular Volume 91.8 fl (80-94); Mean Platelet Volume 8.1 fl (7.4-10.4); Monocytes # 0.6 K/mm3 (0.1-1.0); Monocytes % 7.3 % (1.7-9.3); Neutrophils # 5.7 K/mm3 (1.8-7.8); Neutrophils % 65.8 % (37.0-80.0); Platelet Count 260 K/mm3 (142-424); Red Blood Count 5.62 M/mm3 (4.60-6.20); White Blood Count 8.7 K/mm3 (4.8-10.8)
[2020-11-17 12:55] LABS: Anion Gap 12.8 mEq/L (5-15); Blood Urea Nitrogen 50 mg/dl (9-20); Calcium 9.4 mg/dl (8.4-10.2); Carbon Dioxide 31 mmol/L (22.0-30.0); Chloride 99 mmol/L (98-107); Estimated Glomerular Filt Rate 29 ml/min (>60); GFR (African American) 35 ML/MIN (>60); Glucose 104 mg/dl (74-100); Potassium 5.8 mmoL/L (3.5-5.1); Sodium 137 mmol/L (136-145)
[2020-11-17 13:05] LABS: NT Pro Brain Natriuretic Pep. 1610 pg/mL (0-125)
== END ==
PROVIDERS: Visit Provider Urology
DX: I25.10 Atherosclerotic heart disease of native coronary artery without angina pectoris (principal); I48.91 Unspecified atrial fibrillation; I11.9 Hypertensive heart disease without heart failure; E78.5 Hyperlipidemia, unspecified
CPT/HCPCS: 80048; 83880; 85025

== ENCOUNTER → 2020-12-13 07:51 | Outpatient (CLI) | payer OTHER, SELFPAY ==
[2020-12-13 08:01] LABS: Microscopic, Urine URINE MICROSCOPIC (MICROSCOPIC)
[2020-12-13 11:14] LABS: Basophils # 0.1 K/mm3 (0-0.2); Basophils % 0.8 % (0.1-2.0); Eosinophils # 0.1 K/mm3 (0.0-0.4); Eosinophils % 1.4 % (0.1-12.0); Hematocrit 48.5 % (42.0-52.0); Hemoglobin 15.9 g/dL (14.1-18.0); Lymphocytes # 1.9 K/mm3 (0.7-4.5); Lymphocytes % 23.5 % (10-50); Mean Corpuscular HGB Conc 32.8 g/dL (31.8-35.4); Mean Corpuscular Hemoglobin 31.8 pg (27.0-31.2); Mean Platelet Volume 8.8 fl (7.4-10.4); Monocytes # 0.5 K/mm3 (0.1-1.0); Monocytes % 6.9 % (1.7-9.3); Neutrophils # 5.3 K/mm3 (1.8-7.8); Neutrophils % 67.5 % (37.0-80.0); Platelet Count 321 K/mm3 (142-424); Red Cell Distribution Width 14.1 % (11.5-17.5); White Blood Count 7.9 K/mm3 (4.8-10.8)
[2020-12-13 14:12] LABS: Appearance,Urine CLEAR (Clear); Bilirubin,Urine Negative (Negative); Blood, Urine Negative (Negative); Color,Urine YELLOW (Yellow); Glucose,Urine (UA) Negative (Negative); Ketones,Urine Negative (Negative); Leukocyte Esterase,Urine Negative (Negative); Nitrate,Urine Negative (Negative); PH,Urine 5.5 (5.0-8.5); Protein,Urine Negative (Negative); Specific Gravity, Urine 1.025 (1.005-1.030); Urobilinogen,Urine 0.2 EU/dl (0.2)
[2020-12-13 14:21] LABS: Albumin Level 4.2 g/dl (3.5-5.0); Anion Gap 18.8 mEq/L (5-15); Blood Urea Nitrogen 19 mg/dl (9-20); Calcium 9.3 mg/dl (8.4-10.2); Carbon Dioxide 28 mmol/L (22.0-30.0); Chloride 100 mmol/L (98-107); Estimated Glomerular Filt Rate 48 ml/min (>60); GFR (African American) 58 ML/MIN (>60); Glucose 115 mg/dl (74-100); Phosphorous 3.4 mg/dl (2.5-4.5); Potassium 4.8 mmoL/L (3.5-5.1); Sodium 142 mmol/L (136-145)
[2020-12-13 14:24] LABS: Creatinine,Urine Random 167 mg/dL (Not Estab.)
[2020-12-13 14:33] LABS: Intact Parathyroid Hormone 93.1 pg/mL (7.5-53.5)
[2020-12-13 15:15] LABS: Bacteria,Urine Trace /lpf; Squamous Epithelial Cell,Urine Occasional #/hpf (0-5)
== END ==
PROVIDERS: Visit Provider Internal Medicine Nephrology
DX: N18.4 Chronic kidney disease, stage 4 (severe) (principal)
CPT/HCPCS: 36415; 80069; 81001; 82306; 82570; 83970; 84156; 84166; 85025

== ENCOUNTER → 2020-12-18 08:10 | Outpatient (CLI) | payer OTHER, SELFPAY | PROVIDERS: Visit Provider Internal Medicine Nephrology | DX: N18.4 Chronic kidney disease, stage 4 (severe) (principal) | CPT/HCPCS: 84155 ==

== ENCOUNTER → 2020-12-18 14:22 | Outpatient (POV) | payer OTHER, SELFPAY | PROVIDERS: Visit Provider Internal Medicine Nephrology | DX: Z00.00 Encounter for general adult medical examination without abnormal findings (principal) ==

== ENCOUNTER → 2020-12-19 15:15 | Outpatient (CLI) | payer OTHER, SELFPAY ==
--- NOTE | 2020-12-19 15:15 | US_ITS ---
APPROVED REPORT Exam Type: Lower Extremity Segmental Pressures Indications Cold Sensitivity Discoloration of the bilateral lower extremities. Risk Factors Hypertension Diabetes Findings Rt. TAZ: 1.22 Lt. TAZ: 1.24 Rt. TBI: 0.99 Lt. TBI: 1.08 Normal waveforms bilaterally. Slightly weakened DP pulses. Normal pulses at all other levels bilaterally. Conclusion Rt. TAZ: 1.22 Lt. TAZ: 1.24 Rt. TBI: 0.99 Lt. TBI: 1.08 Normal ABIs Normal waveforms bilaterally. Slightly weakened DP pulses. Normal pulses at all other levels bilaterally. Electronically signed by : Car Armendariz MD 12/23/2020 16:26:45
== END ==
PROVIDERS: PCP Family Medicine; Visit Provider Nurse Practitioner Family
DX: R20.9 Unspecified disturbances of skin sensation (principal); L81.9 Disorder of pigmentation, unspecified
CPT/HCPCS: 93923

== ENCOUNTER → 2021-03-11 11:23 | Outpatient (CLI) | payer OTHER, SELFPAY ==
--- NOTE | 2021-03-11 11:32 | XR_ITS ---
PROCEDURE: XR CHEST PORTABLE CLINICAL HISTORY: COVID OUTPATIENT COMPARISON: CR XR CHEST PORTABLE from 10/19/2020 FINDINGS: There is moderate cardiomegaly without failure. The lungs are clear without infiltrates, suspicious nodules, or pleural effusions. No acute bony abnormalities. IMPRESSION: Cardiomegaly otherwise negative Dictated by: Car Armendariz MD 03/11/2021 12:08 Car Armendariz MD in OV 03/11/2021 12:08
[2021-03-11 11:58] LABS: Influenza A, PCR Not Detected (NotDetected); Influenza B, PCR Not Detected (NotDetected)
[2021-03-11 12:14] LABS: Basophils % 0.4 % (0.1-2.0); Eosinophils % 0.6 % (0.1-12.0); Hematocrit 50.5 % (42.0-52.0); Hemoglobin 16.9 g/dL (14.1-18.0); Lymphocytes # 1.1 K/mm3 (0.7-4.5); Lymphocytes % 19.1 % (10-50); Mean Corpuscular HGB Conc 33.5 g/dL (31.8-35.4); Mean Corpuscular Hemoglobin 32.1 pg (27.0-31.2); Mean Corpuscular Volume 95.6 fl (80-94); Mean Platelet Volume 8.4 fl (7.4-10.4); Monocytes # 0.3 K/mm3 (0.1-1.0); Monocytes % 5.4 % (1.7-9.3); Neutrophils # 4.4 K/mm3 (1.8-7.8); Neutrophils % 74.4 % (37.0-80.0); Platelet Count 248 K/mm3 (142-424); Red Blood Count 5.28 M/mm3 (4.60-6.20); Red Cell Distribution Width 13.8 % (11.5-17.5); White Blood Count 5.9 K/mm3 (4.8-10.8)
[2021-03-11 13:10] LABS: Coronavirus 19, PCR Detected (NotDetected)
== END ==
PROVIDERS: PCP Family Medicine; Visit Provider Nurse Practitioner
DX: U07.1 COVID-19 (principal)
CPT/HCPCS: 36415; 71045; 85025; C9803; U0003; U0005

== ENCOUNTER → 2021-03-13 08:01 | Outpatient (CLI) | payer OTHER, SELFPAY ==
[2021-03-13] VITALS (9 sets, daily range): BP systolic 130–155; BP diastolic 72–94; PULSE 60–89; RESP 18; TEMP 36.1–36.3; O2SAT 95–96
--- NOTE | 2021-03-13 10:11 | PC.NURSE ---
PT DISCHARGE HOME AT THIS TIME. PT STABLE.
== END | disposition home or self-care (01) ==
PROVIDERS: PCP Nurse Practitioner; Visit Provider Nurse Practitioner
DX: U07.1 COVID-19 (principal); Z23 Encounter for immunization
CPT/HCPCS: 96365

== ENCOUNTER → 2021-04-18 08:34 | Outpatient (CLI) | payer OTHER, SELFPAY ==
[2021-04-18 08:42] LABS: Microscopic, Urine URINE MICROSCOPIC (MICROSCOPIC)
[2021-04-18 09:38] LABS: Hematocrit 48.2 % (42.0-52.0); Hemoglobin 15.2 g/dL (14.1-18.0); Mean Corpuscular HGB Conc 31.6 g/dL (31.8-35.4); Mean Corpuscular Hemoglobin 31.6 pg (27.0-31.2); Mean Corpuscular Volume 99.9 fl (80-94); Platelet Count 312 K/mm3 (142-424); Red Blood Count 4.82 M/mm3 (4.60-6.20); Red Cell Distribution Width 13.9 % (11.5-17.5); White Blood Count 8.3 K/mm3 (4.8-10.8)
[2021-04-18 09:45] LABS: Hemoglobin A1C 6.8 % (4.0-6.0)
[2021-04-18 10:00] LABS: Albumin Level 4.2 g/dl (3.5-5.0); Anion Gap 11.1 mEq/L (5-15); Blood Urea Nitrogen 19 mg/dl (9-20); Calcium 9.2 mg/dl (8.4-10.2); Carbon Dioxide 30 mmol/L (22.0-30.0); Chloride 100 mmol/L (98-107); Estimated Glomerular Filt Rate 56 ml/min (>60); GFR (African American) 68 ML/MIN (>60); Glucose 141 mg/dl (74-100); Phosphorous 2.9 mg/dl (2.5-4.5); Potassium 4.1 mmoL/L (3.5-5.1); Sodium 137 mmol/L (136-145)
[2021-04-18 10:48] LABS: Appearance,Urine CLEAR (Clear); Bilirubin,Urine Negative (Negative); Blood, Urine Negative (Negative); Color,Urine YELLOW (Yellow); Glucose,Urine (UA) Negative (Negative); Ketones,Urine Negative (Negative); Leukocyte Esterase,Urine Negative (Negative); Nitrate,Urine Negative (Negative); Protein,Urine Negative (Negative); Specific Gravity, Urine 1.015 (1.005-1.030); Urobilinogen,Urine 0.2 EU/dl (0.2)
[2021-04-18 11:36] LABS: Squamous Epithelial Cell,Urine Occasional #/hpf (0-5); WBC,Urine Occasional #/hpf (0-3)
[2021-04-18 11:46] LABS: Creatinine,Urine Random 114 mg/dL (Not Estab.)
== END ==
PROVIDERS: Family Medicine; Visit Provider Internal Medicine Nephrology
DX: N17.9 Acute kidney failure, unspecified (principal); E11.9 Type 2 diabetes mellitus without complications; Z79.84 Long term (current) use of oral hypoglycemic drugs
CPT/HCPCS: 36415; 80069; 81001; 82570; 83036; 84155; 85014; 85018; 85048; 85049

== ENCOUNTER → 2021-04-23 12:14 | Outpatient (POV) | payer OTHER, SELFPAY | PROVIDERS: Visit Provider Internal Medicine Nephrology | DX: Z00.00 Encounter for general adult medical examination without abnormal findings (principal) ==

== ENCOUNTER → 2021-10-17 08:09 | Outpatient (CLI) | payer OTHER, SELFPAY ==
[2021-10-17 08:29] LABS: Microscopic, Urine URINE MICROSCOPIC (MICROSCOPIC)
[2021-10-17 09:11] LABS: Hematocrit 48.4 % (42.0-52.0); Hemoglobin 14.9 g/dL (14.1-18.0); Mean Corpuscular HGB Conc 30.7 g/dL (31.8-35.4); Mean Corpuscular Hemoglobin 31.2 pg (27.0-31.2); Mean Corpuscular Volume 101.7 fl (80-94); Platelet Count 257 K/mm3 (142-424); Red Blood Count 4.76 M/mm3 (4.60-6.20); Red Cell Distribution Width 13.9 % (11.5-17.5); White Blood Count 8.3 K/mm3 (4.8-10.8)
[2021-10-17 09:48] LABS: Albumin Level 4.2 g/dl (3.5-5.0); Anion Gap 12.3 mEq/L (5-15); Blood Urea Nitrogen 14 mg/dl (9-20); Calcium 9.5 mg/dl (8.4-10.2); Carbon Dioxide 30 mmol/L (22.0-30.0); Chloride 102 mmol/L (98-107); Estimated Glomerular Filt Rate 61 ml/min (>60); GFR (African American) 74 ML/MIN (>60); Glucose 163 mg/dl (74-100); Phosphorous 3.5 mg/dl (2.5-4.5); Potassium 4.3 mmoL/L (3.5-5.1); Sodium 140 mmol/L (136-145)
[2021-10-17 09:55] LABS: Creatinine,Urine Random 41 mg/dL (Not Estab.)
[2021-10-17 09:58] LABS: Appearance,Urine CLEAR (Clear); Bilirubin,Urine Negative (Negative); Blood, Urine Negative (Negative); Color,Urine YELLOW (Yellow); Glucose,Urine (UA) Negative (Negative); Ketones,Urine Negative (Negative); Leukocyte Esterase,Urine Negative (Negative); Nitrate,Urine Negative (Negative); PH,Urine 5.5 (5.0-8.5); Protein,Urine Negative (Negative); Specific Gravity, Urine 1.025 (1.005-1.030); Urobilinogen,Urine 0.2 EU/dl (0.2)
[2021-10-17 10:26] LABS: Bacteria,Urine Trace /lpf; Squamous Epithelial Cell,Urine Occasional #/hpf (0-5)
== END ==
PROVIDERS: PCP Family Medicine; Visit Provider Internal Medicine Nephrology
DX: N18.31 Chronic kidney disease, stage 3a (principal)
CPT/HCPCS: 36415; 80069; 81001; 82570; 84155; 85014; 85018; 85048; 85049

== ENCOUNTER → 2021-10-26 15:48 | Outpatient (POV) | payer OTHER, SELFPAY | PROVIDERS: Visit Provider Internal Medicine Nephrology | DX: Z00.00 Encounter for general adult medical examination without abnormal findings (principal) ==

== ENCOUNTER → 2021-12-30 13:29 | Outpatient (CLI) | payer OTHER, SELFPAY ==
[2021-12-30 15:36] LABS: Alanine Aminotransferase 44 U/L (12-78); Albumin Level 4.3 g/dl (3.5-5.0); Alkaline Phosphatase 76 U/L (38-126); Anion Gap 15.5 mEq/L (5-15); Aspartate Amino Transferase 49 U/L (17-59); Bilirubin,Direct 0.2 mg/dl (0.0-0.4); Bilirubin,Indirect 0.1 mg/dL (0.0-0.9); Bilirubin,Total 0.3 mg/dl (0.2-1.3); Bilirubin,Unconjugated 0.1 mg/dL (0.0-1.1); Blood Urea Nitrogen 21 mg/dl (9-20); Calcium 9.2 mg/dl (8.4-10.2); Carbon Dioxide 27 mmol/L (22.0-30.0); Chloride 101 mmol/L (98-107); Cholesterol 146 mg/dl (140-200); Estimated Glomerular Filt Rate 61 ml/min (>60); GFR (African American) 74 ML/MIN (>60); Glucose 126 mg/dl (74-100); HDL Cholesterol 29 mg/dl (40-60); Potassium 4.5 mmoL/L (3.5-5.1); Sodium 139 mmol/L (136-145); Total Protein,Serum 6.7 g/dl (6.3-8.2); Triglycerides 296 mg/dl (30-150); VLDL Cholesterol 59 mg/dL (0-40)
== END ==
PROVIDERS: PCP Family Medicine; Visit Provider Nurse Practitioner Family
DX: I25.10 Atherosclerotic heart disease of native coronary artery without angina pectoris (principal); I48.20 Chronic atrial fibrillation, unspecified; I11.9 Hypertensive heart disease without heart failure; E78.2 Mixed hyperlipidemia
CPT/HCPCS: 36415; 80048; 80061; 80076

== ENCOUNTER → 2022-05-14 09:05 | Outpatient (CLI) | payer OTHER, SELFPAY ==
[2022-05-14 09:19] LABS: Microscopic, Urine URINE MICROSCOPIC (MICROSCOPIC)
[2022-05-14 10:01] LABS: Hematocrit 48.6 % (42.0-52.0); Hemoglobin 15.6 g/dL (14.1-18.0); Mean Corpuscular HGB Conc 32.1 g/dL (31.8-35.4); Mean Corpuscular Hemoglobin 32.1 pg (27.0-31.2); Platelet Count 285 K/mm3 (142-424); Red Blood Count 4.86 M/mm3 (4.60-6.20); Red Cell Distribution Width 13.3 % (11.5-17.5); White Blood Count 7.5 K/mm3 (4.8-10.8)
[2022-05-14 10:18] LABS: Appearance,Urine CLEAR (Clear); Bilirubin,Urine Negative (Negative); Blood, Urine Negative (Negative); Color,Urine YELLOW (Yellow); Glucose,Urine (UA) Negative (Negative); Ketones,Urine Negative (Negative); Leukocyte Esterase,Urine Negative (Negative); Nitrate,Urine Negative (Negative); PH,Urine 5.5 (5.0-8.5); Protein,Urine Negative (Negative); Specific Gravity, Urine 1.015 (1.005-1.030); Urobilinogen,Urine 0.2 EU/dl (0.2)
[2022-05-14 10:27] LABS: Creatinine,Urine Random 32 mg/dL (Not Estab.)
[2022-05-14 10:33] LABS: Squamous Epithelial Cell,Urine Occasional #/hpf (0-5)
[2022-05-14 10:39] LABS: Albumin Level 4.5 g/dl (3.5-5.0); Anion Gap 8.4 mEq/L (5-15); Blood Urea Nitrogen 17 mg/dl (9-20); Calcium 9.1 mg/dl (8.4-10.2); Carbon Dioxide 31 mmol/L (22.0-30.0); Chloride 106 mmol/L (98-107); Estimated Glomerular Filt Rate 51 ml/min (>60); GFR (African American) 62 ML/MIN (>60); Glucose 148 mg/dl (74-100); Phosphorous 3.1 mg/dl (2.5-4.5); Potassium 4.4 mmoL/L (3.5-5.1); Sodium 141 mmol/L (136-145)
[2022-05-14 10:54] LABS: 25-OH Vitamin D, Total 80.3 ng/mL (30-100)
== END ==
PROVIDERS: PCP Family Medicine; Visit Provider Internal Medicine Nephrology
DX: N18.31 Chronic kidney disease, stage 3a (principal)
CPT/HCPCS: 36415; 80069; 81001; 82306; 82570; 84155; 85014; 85018; 85048; 85049

== ENCOUNTER → 2022-05-19 12:17 | Outpatient (CLI) | payer OTHER, SELFPAY | PROVIDERS: PCP Family Medicine; Visit Provider Internal Medicine Nephrology | DX: N18.31 Chronic kidney disease, stage 3a (principal) | CPT/HCPCS: 83970 ==

== ENCOUNTER → 2022-05-20 13:21 | Outpatient (POV) | payer OTHER, SELFPAY | PROVIDERS: Visit Provider Internal Medicine Nephrology | DX: Z00.00 Encounter for general adult medical examination without abnormal findings (principal) ==

== ENCOUNTER → 2022-11-20 08:16 | Outpatient (CLI) | payer OTHER, SELFPAY ==
[2022-11-20 08:30] LABS: Microscopic, Urine URINE MICROSCOPIC (MICROSCOPIC)
[2022-11-20 08:51] LABS: Hemoglobin 14.5 g/dL (14.1-18.0); Mean Corpuscular HGB Conc 32.3 g/dL (31.8-35.4); Mean Corpuscular Hemoglobin 30.5 pg (27.0-31.2); Mean Corpuscular Volume 94.6 fl (80-94); Platelet Count 261 K/mm3 (142-424); Red Blood Count 4.76 M/mm3 (4.60-6.20); Red Cell Distribution Width 13.6 % (11.5-17.5); White Blood Count 7.3 K/mm3 (4.8-10.8)
[2022-11-20 10:01] LABS: Anion Gap 10.6 mEq/L (5-15); Blood Urea Nitrogen 18 mg/dl (9-20); Calcium 9.3 mg/dl (8.4-10.2); Carbon Dioxide 28 mmol/L (22.0-30.0); Chloride 108 mmol/L (98-107); Chol/HDL Ratio 4.7 (1-3.5); Cholesterol 132 mg/dl (140-200); Estimated Glomerular Filt Rate 56 ml/min (>60); GFR (African American) 67 ML/MIN (>60); Glucose 154 mg/dl (74-100); HDL Cholesterol 28 mg/dl (40-60); Phosphorous 3.7 mg/dl (2.5-4.5); Potassium 4.6 mmoL/L (3.5-5.1); Sodium 142 mmol/L (136-145); Triglycerides 250 mg/dl (30-150); Uric Acid 5.3 mg/dl (3.5-8.5); VLDL Cholesterol 50 mg/dL (0-40)
[2022-11-20 10:03] LABS: Albumin Level 4.1 g/dl (3.5-5.0); Anion Gap 11.6 mEq/L (5-15); Blood Urea Nitrogen 18 mg/dl (9-20); Calcium 9.2 mg/dl (8.4-10.2); Carbon Dioxide 28 mmol/L (22.0-30.0); Chloride 107 mmol/L (98-107); Estimated Glomerular Filt Rate 56 ml/min (>60); GFR (African American) 67 ML/MIN (>60); Glucose 154 mg/dl (74-100); Phosphorous 3.7 mg/dl (2.5-4.5); Potassium 4.6 mmoL/L (3.5-5.1); Sodium 142 mmol/L (136-145)
[2022-11-20 10:06] LABS: Creatinine,Urine Random 72 mg/dL (Not Estab.)
[2022-11-20 10:06] LABS: Hemoglobin A1C 6.1 % (4.0-6.0)
[2022-11-20 10:11] LABS: Direct LDL Cholesterol 78.87 mg/dL (100-129)
[2022-11-20 10:17] LABS: Free T4 (Free Thyroxine) 0.67 ng/dl (0.78-2.19)
[2022-11-20 10:18] LABS: Appearance,Urine CLEAR (Clear); Bilirubin,Urine Negative (Negative); Blood, Urine Negative (Negative); Color,Urine YELLOW (Yellow); Glucose,Urine (UA) Negative (Negative); Ketones,Urine Negative (Negative); Leukocyte Esterase,Urine Negative (Negative); Nitrate,Urine Negative (Negative); PH,Urine 5.5 (5.0-8.5); Protein,Urine Negative (Negative); Urobilinogen,Urine 0.2 EU/dl (0.2)
[2022-11-20 10:32] LABS: Thyroid Stimulating Hormone 2.02 uIU/mL (0.465-4.68)
[2022-11-20 10:56] LABS: Squamous Epithelial Cell,Urine Occasional #/hpf (0-5)
== END ==
PROVIDERS: PCP Family Medicine; Visit Provider Internal Medicine Nephrology
DX: N18.31 Chronic kidney disease, stage 3a (principal); E03.9 Hypothyroidism, unspecified; I10 Essential (primary) hypertension; E11.9 Type 2 diabetes mellitus without complications; Z79.84 Long term (current) use of oral hypoglycemic drugs; Z79.899 Other long term (current) drug therapy
CPT/HCPCS: 36415; 80048; 80061; 80069; 81001; 82570; 83036; 84100; 84155; 84439; 84443; 84550; 85014; 85018; 85048; 85049

== ENCOUNTER 2024-07-05 11:46 | Outpatient (CLI) | payer OTHER, SELFPAY ==
[2024-07-05 12:08] LABS: Basophils % 0.6 % (0.1-2.0); Eosinophils # 0.1 K/mm3 (0.0-0.4); Eosinophils % 1.2 % (0.1-12.0); Hematocrit 48.2 % (42.0-52.0); Hemoglobin 15.9 g/dL (14.1-18.0); Lymphocytes # 1.1 K/mm3 (0.7-4.5); Lymphocytes % 15.4 % (10-50); Mean Corpuscular Hemoglobin 31.5 pg (27.0-31.2); Mean Corpuscular Volume 95.4 fl (80-94); Mean Platelet Volume 10.7 fl (7.4-10.4); Monocytes # 0.5 K/mm3 (0.1-1.0); Monocytes % 6.5 % (1.7-9.3); Neutrophils # 5.5 K/mm3 (1.8-7.8); Platelet Count 280 K/mm3 (142-424); Red Blood Count 5.05 M/mm3 (4.60-6.20); Red Cell Distribution Width 12.7 % (11.5-17.5); White Blood Count 7.3 K/mm3 (4.8-10.8)
[2024-07-05 12:30] LABS: Hemoglobin A1C 12.5 % (4.0-6.0)
[2024-07-05 12:33] LABS: Albumin Level 4.6 g/dl (3.5-5.0); Chloride 95 mmol/L (98-107); Potassium 5.4 mmoL/L (3.5-5.1); Sodium 132 mmol/L (136-145)
[2024-07-05 12:36] LABS: Alanine Aminotransferase 90 U/L (12-78); Alkaline Phosphatase 98 U/L (38-126); Anion Gap 13.4 mEq/L (5-15); Aspartate Amino Transferase 124 U/L (17-59); Bilirubin,Direct 0.3 mg/dl (0.0-0.4); Bilirubin,Indirect 0.3 mg/dL (0.0-0.9); Bilirubin,Total 0.6 mg/dl (0.2-1.3); Bilirubin,Unconjugated 0.3 mg/dL (0.0-1.1); Blood Urea Nitrogen 27 mg/dl (9-20); Carbon Dioxide 29 mmol/L (22.0-30.0); Cholesterol 163 mg/dl (140-200); Estimated Glomerular Filt Rate 61 ml/min (>60); GFR (African American) 74 ML/MIN (>60); Total Protein,Serum 6.7 g/dl (6.3-8.2); Triglycerides 332 mg/dl (30-150); VLDL Cholesterol 66 mg/dL (0-40)
[2024-07-05 12:37] LABS: Calcium 10.6 mg/dl (8.4-10.2); Chol/HDL Ratio 4.8 (1-3.5); HDL Cholesterol 34 mg/dl (40-60)
[2024-07-05 12:48] LABS: Direct LDL Cholesterol 90.16 mg/dL (100-129)
[2024-07-05 12:56] LABS: Free T4 (Free Thyroxine) 1.29 ng/dl (0.78-2.19)
[2024-07-05 13:07] LABS: Thyroid Stimulating Hormone 1.77 uIU/mL (0.465-4.68)
[2024-07-05 13:27] LABS: Glucose 621 mg/dl (74-100)
== END 2024-07-05 23:59 | disposition home or self-care (01) ==
LOC: LAB 11:47
PROVIDERS: PCP Internal Medicine; Visit Provider Physician Assistant
DX: I25.10 Atherosclerotic heart disease of native coronary artery without angina pectoris (principal); E78.2 Mixed hyperlipidemia; I51.89 Other ill-defined heart diseases; E11.9 Type 2 diabetes mellitus without complications; E03.9 Hypothyroidism, unspecified; I10 Essential (primary) hypertension
CPT/HCPCS: 36415; 80048; 80061; 80076; 83036; 84439; 84443; 85025

== ENCOUNTER 2024-07-12 10:40 | Outpatient (CLI) | payer OTHER, SELFPAY ==
[2024-07-12 11:41] LABS: Chloride 97 mmol/L (98-107)
[2024-07-12 11:42] LABS: Albumin Level 4.6 g/dl (3.5-5.0); Potassium 5.2 mmoL/L (3.5-5.1); Sodium 134 mmol/L (136-145)
[2024-07-12 11:44] LABS: Blood Urea Nitrogen 26 mg/dl (9-20); Estimated Glomerular Filt Rate 61 ml/min (>60); GFR (African American) 74 ML/MIN (>60)
[2024-07-12 11:45] LABS: Alanine Aminotransferase 96 U/L (12-78); Albumin/Globulin Ratio 2.2 (1.1-1.8); Alkaline Phosphatase 98 U/L (38-126); Anion Gap 15.2 mEq/L (5-15); Aspartate Amino Transferase 98 U/L (17-59); Bilirubin,Total 0.7 mg/dl (0.2-1.3); Calcium 10.3 mg/dl (8.4-10.2); Carbon Dioxide 27 mmol/L (22.0-30.0); Globulin 2.1 g/dL (1.3-3.2); Total Protein,Serum 6.7 g/dl (6.3-8.2)
[2024-07-12 11:47] LABS: Glucose 481 mg/dl (74-100)
== END 2024-07-12 23:59 | disposition home or self-care (01) ==
LOC: LAB 10:41
PROVIDERS: PCP Internal Medicine; Visit Provider Internal Medicine
DX: Z00.00 Encounter for general adult medical examination without abnormal findings (principal); E87.5 Hyperkalemia; R79.89 Other specified abnormal findings of blood chemistry; E83.52 Hypercalcemia
CPT/HCPCS: 36415; 80053

== ENCOUNTER 2024-09-20 12:42 | Outpatient (CLI) | payer OTHER, SELFPAY ==
--- NOTE | 2024-09-20 13:00 | CA_ITS ---
APPROVED REPORT EXAM: Comprehensive 2D, Doppler, and color-flow Echocardiogram Director Specialty: ASHLY Vargas, RVS Ht: 6 ft 2 in Wt: 271lbs BSA: 2.47 BP: 119/83 mmHg Rhythm: Atrial Fibrillation Indications: Afib, Questionable LV mass last echo, Diastolic dysfunction Echo Enhancing Agent Indication: Rule out thrombus Agent(s) / Amount(s) Used: Definity 2 cc 2D Dimensions IVSd 1.25 cm M: 0.6-1.2 LVEF (Visual) 53.30 % PWd 1.33 cm M: 0.6 - 1.2 LVDd 5.21 cm M: 4.2 - 5.9 LVDs 3.77 cm M: 2.5 - 4.0 Left Atrium 4.64 cm M: 3.0 - 4.0 M-Mode Dimensions RVDd 3.29 cm (0.9-2.6) LA Diam 5.17 cm (1.9-4.0) LVDd 5.74 cm (3.5-5.7) LVDs 4.18 cm (3.5-5.7) IVSd 1.24 cm (0.6-1.1) PWd 1.16 cm (0.6-1.1) EF (Teich) 52.20% EPSs 1.90 cm FS 27.20% EDV (Teich) 162.60 mL TAPSE 1.70 (<1.7) ESV (Teich) 77.70 mL LV Diastology E Decel Time 160 (160-240 msec) E/A Ratio 2.52 MED A' 2.50 cm/s LAT A' 1.80 cm/s Aortic Valve LATRICE Index 0.81 cm2/m2 AoV Peak Dejan. 117.0 (50-130 cm/s) AI PHT 733.00 ms AO Peak GR. 5.50 mmHg AO Mean GR. 2.80 (<5 mmHg) AO VTI 20.8 (18-25 cm) LATRICE (VTI) 2.05 (2.5-4.5 cm2) Mitral Valve MV A Velocity 28.0 (40-130 cm/s) E/A Ratio 2.52 MV Mean Gr. 1.40 (<2mmHg) Pulmonary Valve NE End VMAX 210.0 cm/s Tricuspid Valve TR P. Velocity 261.00 cm/s RAP Estimate 10.00 mmHg RVSP 37.30 mmHg Left Ventricle The left ventricle is normal size. Left ventricular systolic function is mild to moderately decreased. There is increased LV wall thickness. There is mild to moderate global hypokinesis present. The septum is asynchronous. LVEF is 40%. Diastolic function is indeterminate. No left ventricle thrombus noted on this study. Right Ventricle The right ventricle is mildly dilated. Right ventricle is mildly hypokinetic. Atria Left atrium is moderately dilated. Right atrium is moderately dilated. There is no Doppler evidence of interatrial shunt. Aortic Valve Aortic valve is mildly thickened. Mild aortic regurgitation. There is no aortic valvular stenosis. Mitral Valve The mitral valve is normal in structure. No evidence of mitral valve stenosis. Mild mitral regurgitation. Tricuspid Valve Tricuspid valve is grossly normal in structure and function. Mild tricuspid vegetation. RVSP is 30-35 mmHg. Pulmonic Valve The pulmonary valve is normal in structure. Trace pulmonic regurgitation. Great Vessels The aortic root is normal in size. IVC is normal in size and collapses >50% with inspiration. Pericardium There is no pericardial effusion. Other Information Study Quality: Fair Conclusion Mild to moderate reduction in LV systolic function (LVEF 40%). Asynchronous septum. Mild RV dilation with mild reduction in RV function. Biatrial dilation. Mild AI, mild PI, mild MR, mild TR. No left ventricle thrombus noted on this study after administration of ultrasound enhancing agent (the suspected apical LV thrombus on this TTE is likely near-field clutter artifact, in the setting of no filling defects with contrast administration). Electronically signed by : Samanta Alberto MD 09/27/2024 14:44:40
[2024-09-20] MEDS: DEFINITY US ECHO CONTRAST 2ML INJ 2 MG IV (13:53)
== END 2024-09-20 23:59 | disposition home or self-care (01) ==
LOC: RT 12:42
PROVIDERS: PCP Internal Medicine; Visit Provider Physician Assistant
DX: I08.8 Other rheumatic multiple valve diseases (principal); I48.91 Unspecified atrial fibrillation; R93.1 Abnormal findings on diagnostic imaging of heart and coronary circulation
CPT/HCPCS: 93306; Q9957

== ENCOUNTER 2024-09-21 16:51 | Outpatient (CLI) | payer OTHER, SELFPAY ==
--- OUTSIDE RECORDS SUMMARY | 2024-09-21 16:55 | XMS_ITS | Clinical Summary ---
Author Organization [facility] Address [address] [place] [address] Phone Care Team Providers Care Cuff Knitter Name Role Phone Vladimir Leung MD Primary Care Provider [phone] Allergies No known active allergies Medications lisinopril-hydro chlorothiazide (PRINZIDE;ZESTOR ETIC) 10-12.5 mg per tablet Take 1 Tab by mouth daily. Active cephALEXin (KEFLEX) 500 mg capsule Take 1 Cap by mouth 3 times daily. 15 Cap 0 12/18/2010 Active Medical History Medical History Date Comments Hypertension Social History Tobacco Use Types Packs/Day Years Used Date Smoking Tobacco: Never Alcohol Use Standard Drinks/Week Comments No 0 (1 standard drink = 0.6 oz pur e alcohol) Sex and Gender Information Value Date Recorded Sex Assigned at Not on file Legal Sex Male 9:11 PM EDT Gender Identity Not on file Sexual Orientation Not on file Obstetrics History Last Filed Vital Signs Vital Sign Reading Time Taken Comments Blood Pressure 163/89 12/18/2010 5:36 PM EDT Pulse 60 12/18/2010 5:36 PM EDT Temperature 36.9 C (98.4 F) 12/18/2010 5:36 PM EDT Respiratory Rate 20 12/18/2010 5:36 PM EDT Oxygen Saturation - - Inhaled Oxygen Concentration - - Weight 117 kg (258 lb) 12/18/2010 5:36 PM EDT Height 188 cm (6' 2 ) 12/18/2010 5:36 PM EDT Body Mass Index 33.13 12/18/2010 5:36 PM EDT Plan of Treatment Health Maintenance Due Date Last Done Comments Annual Wellness Exam 1963 Hepatitis C Screening 1977 DTaP/TDaP/Td (1 - Tdap) 1978 Cologuard 01/26/2004 Colon Cancer Screening 01/26/2004 Colonoscopy 01/26/2004 FIT 01/26/2004 Sigmoidoscopy 01/26/2004 Virtual Colonography 01/26/2004 Pneumococcal Vaccine 50+ (1 of 1 - PCV) 2009 Zoster (1 of 2) 2009 COVID-19 Vaccine ( - 2023-2 5 season) 2023 Influenza Vaccine (Season Ended) 2024 Hepatitis B Vaccine Aged Out No longe r eligible based on patient's age to complete this topic Meningococcal B Vaccine Aged Out No l onger eligible based on patient's age to complete this topic Care Teams Cuff Knitter Relationship Specialty Start Date End Date Vladimir Leung MD [address] [place] [id number] PCP - General 12/18/10
--- OUTSIDE RECORDS SUMMARY | 2024-09-21 16:55 | XMS_ITS | Clinical Summary ---
Author Organization [facility] Address [address] [place] [address] Care Team Providers Care Emt Paramedic Name Role Phone Vladimir Leung MD Primary Care Provider + [phone] Allergies No known active allergies Medications rivaroxaban (Xarelto) 15 MG tablet Take by mouth 1 (one) time each day. Take with food. Active ASPIRIN 81 PO Take by mouth 1 (one) time each day. Active lovastatin (Mevacor) 20 MG tablet Take 1 tablet (20 mg) by mouth every night. Active metFORMIN (Glucophage) 500 MG tablet Take 1 tablet (500 mg) by mouth 2 (two) times a day with meals. Active levothyroxine (Synthroid, Levoxyl) 25 MCG tablet Take 25 mcg by mouth 1 (one) time each day before breakfast. Active dilTIAZem XR (Dilacor XR) 240 MG 24 hr capsule Take 1 capsule (240 mg) by mouth 1 (one) time each day. Active metoprolol succinate XL (Toprol-XL) 100 MG 24 hr tablet Take 1 tablet (100 mg) by mouth 1 (one) time each day. Do not crush or chew. Active furosemide (Lasix) 20 MG tablet Take by mouth 1 (one) time each day. Active escitalopram (Lexapro) 20 MG tablet Take 1 tablet (20 mg) by mouth 1 (one) time each day. Active lisinopril 5 MG tabletIndications :Proteinuria, unspecified type,Primary hypertension Take 1 tablet (5 mg total) by mouth 1 (one) time each day. 30 tablet 6 2 Active levothyroxine (Synthroid, Levoxyl) 50 MCG tablet 3 Active Active Problems Problem Noted Date Diagnosed Date Stage 3a chronic kidney disease 04/23/2021 Diabetes mellitus type 2 12/12/2020 Overview (01/18/2022): Regulatory Update January 2022 Hypertension 12/12/2020 Hypothyroidism 12/12/2020 Resolved Problems Problem Noted Date Diagnosed Date Resolved Date Proteinuria 10/26/2021 11/23/2022 Family History Medical History Relation Name Comments Hypertension Mother Thyroid disease Mother Relation Name Status Comments Father Mother Alive Social History Tobacco Use Types Packs/Day Years Used Date Smoking Tobacco: Never Passive Smoke Exposure: Never Smokeless Tobacco: Never Alcohol Use Standard Drinks/Week Comments Never 0 (1 standard drink = 0.6 oz pur e alcohol) Sex and Gender Information Value Date Recorded Sex Assigned at Male 12/17/2020 8:30 PM EDT Legal Sex Male 10:20 PM EDT Gender Identity Male 12/17/2020 8:30 PM EDT Sexual Orientation Not on file Last Filed Vital Signs Vital Sign Reading Time Taken Comments Blood Pressure 152/83 11/29/2022 3:44 PM EDT Pulse 69 11/29/2022 3:44 PM EDT Temperature - - Respiratory Rate 18 11/29/2022 3:44 PM EDT Oxygen Saturation 98% 11/29/2022 3:44 PM EDT Inhaled Oxygen Concentration - - Weight 133 kg (293 lb) 11/29/2022 3:44 PM EDT Height - - Body Mass Index - - Plan of Treatment Health Maintenance Due Date Last Done Comments [facility]-Depression Screening 1959 [facility]-Hepatitis C Screening 1959 [facility]-/Child/Adol SDOH Screenings 1959 Diabetes: Dental Exam 1969 [facility]- SDOH Screenings 1977 [facility]-Adult SDOH Screenings 1977 [facility]-DTaP,Tdap,and Td Vaccine s (1 - Tdap) 1978 [facility]-Pneumococcal Vaccine: 50 + Years (1 of 2 - PCV) 1978 CT Colonography 01/26/2004 Colonoscopy 01/26/2004 FIT-DNA 01/26/2004 FIT 01/26/2004 FOBT 01/26/2004 Sigmoidoscopy 01/26/2004 [facility]-Colorectal Cancer Screening 01/26/2004 [facility]-Zoster Vaccines (1 of 2) 2009 [facility]-Diabetes: Hemoglobin A1C 04/18/2021 10/19/2020 [id number] Vaccine (1 - 20 24-25 season) 2023 [facility]-Influenza Vaccine ([place] n Ended) 2024 [facility]-RSV Vaccine: 60+ Years o r (1 - 1-dose 75+ series) 2034 HPV Vaccines Aged Out No longer eligi ble based on patient's age to complete this topic [facility]-HIB Vaccines Aged Out No longer e ligible based on patient's age to complete this topic [facility]-Hepatitis A Vaccines Aged Out No longer eligible based on patient's age to complete this topic [facility]-IPV Vaccines Aged Out No longer e ligible based on patient's age to complete this topic [facility]-Rotavirus Vaccines Aged Out No lo nger eligible based on patient's age to complete this topic Procedures Procedure Name Priority Date/Time Associated Diagnosis Comments HEMOGLOBIN A1C Routine 10/19/2020 from Last 3 Months or Most Recently Relevant to Health Maintenance Results * Hemoglobin A1c (10/19/2020) External Hemoglobin A1c 6.8 Blood Venous blood specimen / Unknown 10/19/2020 Historical Provider LAB BLOOD ORDERABLES Ragini l Result from Last 3 Months or Most Recently Relevant to Health Maintenance Insurance [employer] Care Teams Emt Paramedic Relationship Specialty Start Date End Date Vladimir Leung MD [address] [place] [phone] PCP - General 12/12/20
[2024-09-21 18:18] LABS: Microalbumin/Creatinine Ratio 18.5
[2024-09-21 18:32] LABS: Creatinine,Urine Random 134 mg/dL (Not Estab.)
== END 2024-09-21 23:59 | disposition home or self-care (01) ==
LOC: LAB.DROPOF 16:52
PROVIDERS: PCP Internal Medicine; Visit Provider Internal Medicine
DX: E11.9 Type 2 diabetes mellitus without complications (principal)
CPT/HCPCS: 82043; 82570

== ENCOUNTER 2024-11-05 06:37 | Day surgery (SDC) | payer OTHER, SELFPAY ==
[2024-11-05 07:03] VITALS: BMI 34.0
[2024-11-05 07:40] VITALS: BP 159/124; PULSE 70; PULSE 80; RESP 20; O2SAT 98
--- NOTE | 2024-11-05 08:04 | SUR.PREOP ---
PATIENT STATED HE STOPPED XARELTO 2 DAYS PRIOR, UNABLE TO DO CARDIOVERSION AT THIS TIME, SPOKE TO Luma AVILA, TO BE RESCHEDULED. IV REMOVED, FOLLOW UP GIVEN TO PATIENT.
--- NOTE | 2024-11-05 08:23 | SUR.PHASEII ---
DARRELEINT GIVEN FOLLOW UP
== END 2024-11-05 08:06 | disposition home or self-care (01) ==
PROVIDERS: PCP Internal Medicine; Visit Provider Internal Medicine
PROC: 5A2204Z Restoration of Cardiac Rhythm, Single (ICD-10-PCS; principal; 2024-11-05 07:00)
DX: I48.20 Chronic atrial fibrillation, unspecified (principal); Z53.09 Procedure and treatment not carried out because of other contraindication; Z79.01 Long term (current) use of anticoagulants; Z79.85 Long-term (current) use of injectable non-insulin antidiabetic drugs; Z79.84 Long term (current) use of oral hypoglycemic drugs; Z79.890 Hormone replacement therapy; Z79.82 Long term (current) use of aspirin; Z79.899 Other long term (current) drug therapy